=== PATIENT | male | born 1995 | race Caucasian/White ===

== ENCOUNTER 2022-04-23 11:47 | Emergency (ER) | payer OTHER, SELFPAY ==
[~2022-04-23] VITALS: Ht 170.2 cm; Wt 90.2 kg
[2022-04-23 11:48] VITALS: BP 135/91
[2022-04-23] MEDS ORDERED: ACET-683 PO (12:55)
[2022-04-23] MEDS ORDERED: CYCL-707 PO (12:55)
[2022-04-23] MEDS ORDERED: METH4PACK PO (12:55)
[2022-04-23] MEDS ORDERED: diazePAM 5MG TABLET PO ONE (13:55)
[2022-04-23 14:18] LABS: BASO % 0.4 % (0.0-1.0); EOS % 0.4 % (0.0-3.0); HEMATOCRIT 46.8 % (42.0-52.0); HEMOGLOBIN 16.5 g/dl (13.5-17.5); LYMPH # 2.2 10^3/uL (1.5-5.0); LYMPH % 19.1 % (24.0-44.0); MEAN CORPUSCULAR HEMOGLOBIN 29.3 pg (27.0-33.0); MEAN CORPUSCULAR HGB CONC 35.3 g/dl (32.0-36.5); MONO # 0.8 10^3/uL (0.0-0.8); MONO % 6.9 % (2.0-8.0); NEUTROPHILS # 8.2 10^3/uL (1.5-8.5); NEUTROPHILS % 72.7 % (36.0-66.0); PLATELET COUNT, AUTOMATED 251 10^3/uL (150-450); RED BLOOD COUNT 5.64 10^6/uL (4.30-6.10); WHITE BLOOD COUNT 11.3 10^3/uL (4.0-10.0)
[2022-04-23] MEDS ORDERED: LIDO5DIS41 TD (15:25)
[2022-04-23] MEDS ORDERED: BACL1TAB8 PO (15:25)
== END 2022-04-23 15:38 | disposition home or self-care (01) ==
LOC: M ED 11:47
DX: M79.661 Pain in right lower leg (principal)

== ENCOUNTER → 2022-05-28 | Outpatient (CLI) | payer OTHER ==
[~2022-05-28] MED LIST: ACET-683 PO; BACL1TAB8 PO; CYCL-707 PO; LIDO5DIS41 TD; METH4PACK PO
== END ==
LOC: M PLAIMG 06:34
PROVIDERS: ATTEND Chiropractor
DX: M99.01 Segmental and somatic dysfunction of cervical region (principal); M99.03 Segmental and somatic dysfunction of lumbar region; M50.33 Other cervical disc degeneration, cervicothoracic region; M51.36 Other intervertebral disc degeneration, lumbar region